=== PATIENT | female | born 1965 | race Two or more races ===

== ENCOUNTER 2020-12-02 21:35 | Emergency (ER) | payer MEDICAID ==
[~2020-12-02] VITALS: Ht 152.4 cm; Wt 100.9 kg
[~2020-12-02 21:35] MED LIST: CYCL-1 PO; HYDR-4383 PO; IBUP-1986 PO
[2020-12-02 22:06] LABS: BASOPHILS # (AUTO) 0.1 X10'3 (0-0.2); BASOPHILS % (AUTO) 0.8 % (0-1); EOSINOPHILS # (AUTO) 0.3 X10'3 (0-0.9); EOSINOPHILS % (AUTO) 2.4 % (0-6); HEMOGLOBIN 13.7 g/dl (12.0-16.0); LYMPHOCYTES # (AUTO) 3.6 X10'3 (1.1-4.8); LYMPHOCYTES % (AUTO) 28.1 % (21-51); MEAN CORPUSCULAR HGB CONC 33.5 g/dL (33.0-36.5); MEAN CORPUSCULAR VOLUME 89.6 FL (78-98); MEAN PLATELET VOLUME 7.8 FL (7.4-10.4); MONOCYTES # (AUTO) 1.1 X10'3 (0-0.9); MONOCYTES % (AUTO) 8.7 % (2-12); NEUTROPHILS # (AUTO) 7.8 X10'3 (1.8-7.7); PLATELET COUNT 394 X10'3 (140-440); RED BLOOD COUNT 4.58 X10'6 (4.20-5.60); RED CELL DISTRIBUTION WIDTH 13.9 % (11.5-14.5)
[2020-12-02 22:17] LABS: D-DIMER 0.44 MG/L FEU (0-0.50)
[2020-12-02 22:20] LABS: ALANINE AMINOTRANSFERASE 42 U/L (12-78); ALBUMIN 3.6 G/DL (3.4-5.0); ALBUMIN/GLOBULIN RATIO 0.9 (1.1-1.5); ALKALINE PHOSPHATASE 105 IU/L (46-116); ANION GAP 8 (8-16); ASPARTATE AMINO TRANSFERASE 22 U/L (10-37); BILIRUBIN,TOTAL 0.2 MG/DL (0.1-1.0); BLOOD UREA NITROGEN 17 MG/DL (7-18); BUN/CREATININE RATIO 18.3 (6.6-38.0); CALCIUM 9.1 MG/DL (8.5-10.1); CHLORIDE 106 MMOL/L (99-107); CREATININE 0.93 MG/DL (0.40-0.90); GLUCOSE 120 MG/DL (70-104); POTASSIUM 3.4 MMOL/L (3.5-5.1); SODIUM 143 MMOL/L (135-145); TOTAL CARBON DIOXIDE 28.7 MMOL/L (24-32); TOTAL PROTEIN 7.8 G/DL (6.4-8.2); eGFR 62 ML/MIN
[2020-12-02 22:39] VITALS: BP 155/80
== END 2020-12-02 22:40 | disposition home or self-care (01) ==
LOC: ER 21:35
DX: S16.1XXA Strain of muscle, fascia and tendon at neck level, initial encounter (principal); S29.012A Strain of muscle and tendon of back wall of thorax, initial encounter; N18.9 Chronic kidney disease, unspecified; G58.9 Mononeuropathy, unspecified; M54.2 Cervicalgia; M79.602 Pain in left arm; Z98.890 Other specified postprocedural states; Z79.899 Other long term (current) drug therapy; X58.XXXA Exposure to other specified factors, initial encounter; Y93.89 Activity, other specified; Y92.89 Other specified places as the place of occurrence of the external cause; Y99.8 Other external cause status
CPT/HCPCS: 36415; 71045; 80053; 83880; 84484; 85025; 85379; 93005; 99285

== ENCOUNTER 2023-04-05 18:26 | Emergency (ER) | payer MEDICAID ==
[~2023-04-05] VITALS: Ht 152.4 cm; Wt 90.9 kg
[2023-04-05 18:37] VITALS: BP 125/66; PULSE 63; TEMP 97.6; O2SAT 91
[2023-04-05 19:05] VITALS: RESP 18
[2023-04-05] MEDS ORDERED: ketorolac tromethamine 15mg/ml inj. IV ONE (19:05)
[2023-04-05] MEDS ORDERED: morphine 4 MG/ML inj SYRINge IV ONE (19:05)
[2023-04-05] MEDS ORDERED: ondansetron/PF 4mg/2ml inj IV ONE (19:05)
[2023-04-05] MEDS ORDERED: HYDROcodone/acetaminophen 5mg/325mg tablet PO ONE (21:15)
--- NOTE | 2023-04-05 22:00 | NUR ---
iv dc'd pt being discharged dressing applied
== END 2023-04-05 22:02 | disposition home or self-care (01) ==
LOC: ER 18:27
DX: S73.102A Unspecified sprain of left hip, initial encounter (principal); M79.622 Pain in left upper arm; M79.605 Pain in left leg; Z79.899 Other long term (current) drug therapy; W01.0XXA Fall on same level from slipping, tripping and stumbling without subsequent striking against object, initial encounter; Y93.54 Activity, bowling; Y92.89 Other specified places as the place of occurrence of the external cause; Y99.8 Other external cause status
CPT/HCPCS: 73502; 73552; 96374; 96375; 99284; J1885; J2270; J2405; J7030; A6449

== ENCOUNTER 2025-07-27 19:06 | Emergency (ER) | payer MEDICAID ==
[~2025-07-27] VITALS: Ht 152.4 cm; Wt 95.3 kg
[2025-07-27 19:10] VITALS: BP 156/103; PULSE 83; RESP 16; TEMP 97.7; O2SAT 97
[2025-07-27] MEDS ORDERED: AMOX-117 PO (20:34)
[2025-07-27] MEDS: amox tr/potassium clavulanate 875/125mg TAB PO ONE (20:35)
--- NOTE | 2025-07-27 20:35 | Physician Documentation ---
History of Present Illness ~ Chief Complaint: Facial Swelling Stated Complaint: TOOTH PAIN/FACE SWOLLEN Time Seen by MD: 20:27 Primary Medical Doctor: [facility] HPI Patient is currently being treated for a tooth infection and states she is not tolerating the clindamycin prescribed. In addition she has developed increased swelling in her right cheek region. Denies any fevers denies any abscesses or drainage. Tetanus Within 5 Years: No Medication Reconciliation Allergies: Coded Allergies: No Known Allergies (Unverified , 07/27/25) Scheduled Hydrocodone/Acetaminophen ([place] 5-325 Tablet), 1 TAB PO Q12H PRN Ibuprofen (Ibuprofen), 1 TABLET PO TID Scheduled PRN Cyclobenzaprine* (Cyclobenzaprine*), 1 TABLET PO Q8H PRN for muscle spasms Past Medical History Past Medical History: No Pertinent History Past Surgical History: Alcohol Use: None Drug Use: none Lives In: Home Occupation: employed Review of Systems All Other Systems at this time: Reviewed and Negative ROS As stated above in the HPI, otherwise all systems are reviewed and negative. Physical Exam Vital Signs: Temperature: 97.7, Heart Rate: 83, Respiratory Rate: 16, BP: 156/103, Pulse Oximetry: 97, Weight: 95.300 Physical Exam General: Alert, no apparent distress. HEENT: PERRL, EOMI, no injection, moist mucous membranes. Poor dentition throughout oral cavity Neurologic: Oriented x4. Psychiatric: Normal mood and affect. Skin: erythema,no fluctuance right cheek Progress Results/Orders Results/Orders Orders - JOVAN ANDUJAR NP Triamcinolone Acet 40mg/Ml Inj (Kenalog- (07/27/25 20:30) Amox Tr/Potassium Clavulanate (Augmentin (07/27/25 20:30) Vital Signs 07/27/25 19:10 Temp 97.7 Pulse 83 Resp 16 B/P (MAP) 156/103 Pulse Ox 97 Medical Decision Making Additional information obtaine: old records Findings Who presents with a suspected infection secondary to tooth infection. She appears to not be tolerated and clindamycin that was prescribed, I am going to start her on Augmentin instead. Does not present in any acute distress and does not show any signs of sepsis Differential Dx:Considerations: Include: Abrasion, Contusion, Cerebral contusion, Cervical spine injury, Closed head injury, Encephalopathy, Foreign body, Fracture, facial, Intoxication-alcohol, Intoxication-other drug, Laceration, Other Departure Disposition: 01 HOME / SELF CARE / HOMELESS Impression: Primary Impression: Dental abscess Condition: Stable Discharge Instructions: Abscess, Dental Referrals: NO PRIMARY CARE PROVIDER (PCP) Prescriptions Amox Tr/Potassium Clavulanate (Augmentin 875-125 Tablet) 1 Each Tablet 1 TAB PO Q12H for 10 Days, #20 TAB Prov: JOVAN ANDUJAR NP 07/27/25 Signature Scribe Signature: d Attestation: Scribed for Jovan Andujar Production Administrator by Jovan Andujar - JERONIMO . 07/27/25 20:35 JOVAN ANDUJAR NP Jul 27, 2025 20:35
[2025-07-27] MEDS: triamcinolone acetonide 40mg/ml inj IM ONE (20:37)
== END 2025-07-27 20:52 | disposition home or self-care (01) ==
LOC: ER 19:08
DX: K04.7 Periapical abscess without sinus (principal); Z79.899 Other long term (current) drug therapy; Z98.890 Other specified postprocedural states
CPT/HCPCS: 96372; 99283; J3301